=== PATIENT | female | born 1950 | race Caucasian/White ===

== ENCOUNTER 2019-10-16 12:02 | Outpatient (CLI) | payer MEDICARE, OTHER ==
[2019-10-16 17:52] LABS: BASOPHILS # (AUTO) 0.1 10^3/uL (0.0-0.1); BASOPHILS % (AUTO) 1.1 %; EOSINOPHILS # (AUTO) 0.3 10^3/uL (0.0-0.7); EOSINOPHILS % (AUTO) 3.7 %; HGB - HEMOGLOBIN 15.5 g/dL (12.0-16.0); LYMPHOCYTES # (AUTO) 2.1 10^3/uL (1.5-3.5); LYMPHOCYTES % (AUTO) 23.6 %; MEAN CORPUSCULAR HEMOGLOBIN 29.3 pg (27.0-31.0); MEAN CORPUSCULAR HGB CONC 32.6 g/dL (32.0-36.0); MEAN PLATELET VOLUME 10.7 fL (7.9-10.8); MONOCYTES # (AUTO) 0.7 10^3/uL (0.0-1.0); MONOCYTES % (AUTO) 8.1 %; NEUTROPHILS # (AUTO) 5.6 10^3/uL (1.5-6.6); NEUTROPHILS % (AUTO) 63.2 %; PLT - PLATELET COUNT 388 10^3/uL (130-450); RED BLOOD COUNT 5.29 10^6/uL (4.20-5.40); RED CELL DISTRIBUTION WIDTH 13.5 % (12.0-15.0); WHITE BLOOD COUNT 8.9 x10^3/uL (4.8-10.8)
[2019-10-16 18:11] LABS: ALBUMIN 4.4 g/dL (3.2-5.5); ALBUMIN/GLOBULIN RATIO 1.3 (1.0-2.2); ALKALINE PHOSPHATASE 140 IU/L (42-121); ALT ALANINE AMINOTRANSFERASE 41 IU/L (10-60); AMYLASE 32 U/L (28-100); AST ASPARTATE AMINOTRANSFERASE 21 IU/L (10-42); BILIRUBIN,TOTAL 0.7 mg/dL (0.2-1.0); BUN - BLOOD UREA NITROGEN 12 mg/dL (6-20); CALCIUM 9.4 mg/dL (8.5-10.3); CARBON DIOXIDE - CO2 29 mmol/L (21-32); CHLORIDE 99 mmol/L (101-111); CHOL/HDL RATIO 5.6 (<4.4); CHOLESTEROL 230 mg/dL; CREATININE 0.8 mg/dL (0.4-1.0); GLUCOSE 129 mg/dL (70-100); HDL CHOLESTEROL 41 mg/dL; LDL CHOLESTEROL,CALCULATED 167 mg/dL; LDL/HDL RATIO 4.1 (<4.4); LIPASE 26 U/L (22-51); SODIUM 138 mmol/L (135-145); TOTAL PROTEIN 7.7 g/dL (6.7-8.2); VLDL CHOLESTEROL 22 mg/dL
[2019-10-16 18:13] LABS: HB2 TOTAL 16.6 g/dL; HEMOGLOBIN A1C 0.95 g/dL; HEMOGLOBIN A1C % 7.4 % (4.6-6.2)
[2019-10-16 18:57] LABS: FREE T4 (FREE THYROXINE) 1.46 ng/dL (0.58-1.64)
== END 2019-10-16 23:59 | disposition home or self-care (01) ==
LOC: LAB.WCP 12:02
PROVIDERS: ATTEND Family Medicine
DX: E03.9 Hypothyroidism, unspecified (principal); I10 Essential (primary) hypertension; Z13.1 Encounter for screening for diabetes mellitus; R10.9 Unspecified abdominal pain
CPT/HCPCS: 36415; 80053; 80061; 82150; 83036; 83690; 83721; 84439; 84443; 85025

== ENCOUNTER 2023-03-28 09:41 | Emergency (ER) | payer MEDICARE, OTHER ==
[2023-03-28] MEDS ORDERED: LIDOCAINE PATCH 5% TOP STA (10:04)
--- NOTE | 2023-03-28 10:58 | ED Physician Documentation ---
PD HPI BACK PAIN - Stated complaint Stated Complaint: BACK PX - Chief complaint Chief Complaint: Back Pain - History obtained from History obtained from: Patient - Additional information Additional information: Patient is a 72-year-old female presenting for evaluation of left lower back pain that is been present for the past 2 and half weeks. Patient states a family member fell on the ground and was seated on the ground and that she tried to lift up this person from behind when she felt a pop in her back. She states the pain is in the left lower back without radiation elsewhere. No loss of bow el or bladder control. No fevers. No radiation into her legs. Denies numbness or weakness of the legs. Does not take a blood thinner. She has tried ibuprofen for her symptoms. She also reports having a 6-day course of prednisone that she bought while in [place]. She states that the first day was for 6 tablets that she believes was 5 mg and it tapered down each day from there. She states she tried this about a week ago without any improvement.She feels the pain more when she is doing twisting movements or trying to pick something up but states she feels better with just sitting or being still. Review of Systems Constitutional: denies: Fever Cardiac: denies: Chest pain / pressure Respiratory: denies: Dyspnea GI: denies: Abdominal Pain Musculoskeletal: reports: Back pain Neurologic: denies: Headache PD PAST MEDICAL HISTORY - Present Medications Home Medications: Ambulatory Orders Medication Instructions Recorded Confirmed Cyclobenzaprine [Flexeril] 10 mg PO TID PRN #20 tablet 03/28/23 Lidocaine Patch 5% [Lidoderm Patch] 1 patch TOP DAILY PRN #10 patch 03/28/23 - Allergies Allergies/Adverse Reactions: Allergies Allergy/AdvReac Type Severity Reaction Status Date / Time No Known Drug Allergies Allergy Verified 03/28/23 09:51 PD ED PE NORMAL - General General: Alert and oriented X 3, No acute distress, Well developed/nourished - HEENT HEENT: Atraumatic - Neck Neck: Supple, no meningeal sign - Cardiac Cardiac: RRR, No murmur, Strong equal pulses - Respiratory Respiratory: No respiratory distress, Clear bilaterally - Abdomen Abdomen: Normal bowel sounds, Soft, Non tender, Non distended - Back Back: Other (Mild low lumbar tenderness to palpation, Left paralumbar tenderness, no pelvic pain) - Extremities Extremities: No deformity, No tenderness to palpate, Normal ROM s pain - Neuro Neuro: Alert and oriented X 3, No motor deficit, No sensory deficit, Normal speech Results - Vitals Vitals: Vital Signs - 24 hr 03/28/23 03/28/23 09:46 11:29 Temperature 36.8 C Heart Rate 85 80 Respiratory 18 16 Rate Blood Pressure 146/86 H 129/68 O2 Saturation 94 95 Oxygen O2 Source Room air PD Medical Decision Making - ED course Complexity details: reviewed results, re-evaluated patient, d/w patient ED course: Patient is a 72-year-old female presenting for evaluation of low back pain that has been present for the past 2-1/2 weeks after trying to help a family member up off the ground. There is no radiation to her pain. She has no bowel or bladder incontinence, saddle anesthesia, known risk factors for cauda equina and no symptoms to suggest cord compression. Patient does have mild midline tenderness so CT scan was obtained which demonstrates L1 and L2 compression fractures. Patient declined narcotic pain medications. She is agreeable to trial of lidocaine patches and Flexeril. She is counseled on need for follow-up with her primary care provider. She has no abdominal tenderness. Nothing to suggest kidney stone. No fever. Patient advised on concerning symptoms to return for. Departure - Departure Disposition: 01 Home, Self Care Clinical Impression: Low back pain, Compression fracture of L1 lumbar vertebra, Compression fracture of L2 Condition: Stable Instructions: ED Sprain Strain Lumbar, ED Fx Comp Vertebral Prescriptions: Cyclobenzaprine [Flexeril] 10 mg PO TID PRN #20 tablet PRN Reason: Spasms Lidocaine Patch 5% [Lidoderm Patch] 1 patch TOP DAILY PRN #10 patch PRN Reason: pain Comments: You are found to have 2 compression fractures in your lower back. You also appear to have strain in the muscles in your lower back. You have declined narcotic pain medication but I would recommend continuing with an anti- inflammatory such as ibuprofen or acetaminophen. I have sent prescriptions for lidocaine patch as well as a muscle relaxer to [facility] in [place]. I would recommend close follow-up with your primary care provider. Please return to the ER with any worsening symptoms such as trouble controlling bowel or bladder function, weakness in your legs or any new concerns. CT LUMBAR SPINE 1. Acute to subacute appearing superior endplate compression deformities at L1 and L2 levels as above. Slight retropulsion of upper portion of L1 and L2 posterior muñoz causing mild central canal stenosis at these levels. 2. Degenerative disc disease and bilateral facet arthrosis throughout lumbar spine causing [id number] central canal stenosis and bilateral neural foraminal narrowing more notably at L3- 4 and L4-5 levels as above. Discharge Date/Time: 03/28/23 11:29
--- NOTE | 2023-03-28 11:08 | CT Report ---
PROCEDURE: LUMBAR SPINE WO INDICATIONS: low back pain x 2 weeks TECHNIQUE: Noncontrast 3 mm thick sections acquired from the T12 level to the sacrum. Sagittal and coronal refo rmats were constructed. For radiation dose reduction, the following was used: automated exposure co ntrol, adjustment of mA and/or kV according to patient size. COMPARISON: None. FINDINGS: Image quality: Excellent. Bones: There is straightening of normal lumbar lordosis. Acute to subacute appearing superior endpla te compression deformities are noted at L1 and L2 levels with up to 40% loss of L1 vertebral body hei ght anteriorly and up to 50% loss of L2 vertebral body height. Slight retropulsion involving upper po rtion of L1 and L2 posterior wall causing mild central canal stenosis at these levels are noted. No o ther fracture or dislocation is seen. No pars defects. T12-L1: Mild dorsal disc osteophyte complex formation causing mild central canal stenosis at this le cade. No significant neural foraminal narrowing. L1-L2: Mild dorsal disc osteophyte complex formation and bilateral facet arthrosis is seen. No sig nificant central canal stenosis. Mild to moderate left-sided neural foraminal narrowing is seen. L2-L3: Left lateral disc bulge and bilateral facet arthrosis is seen. No significant central canal stenosis. Mild left-sided neural foraminal narrowing is noted. L3-L4: Broad-based disc bulge and bilateral facet arthrosis causing moderate central canal stenosis and left worse than right bilateral neural foraminal narrowing. L4-L5: Broad-based disc bulge and bilateral facet arthrosis causing moderate central canal stenosis and moderate bilateral neural foraminal narrowing. L5-S1: Normal in appearance. Soft tissues: No retroperitoneal masses or hematomas. Visualized aorta is normal in caliber. IMPRESSION: 1. Acute to subacute appearing superior endplate compression deformities at L1 and L2 levels as above . Slight retropulsion of upper portion of L1 and L2 posterior muñoz causing mild central canal stenos is at these levels. 2. Degenerative disc disease and bilateral facet arthrosis throughout lumbar spine causing mild-to-mo derate central canal stenosis and bilateral neural foraminal narrowing more notably at L3-4 and L4-5 levels as above. Reviewed by: David Nickerson MD on 03/28/2023 11:06 AM PDT Approved by: David Nickerson MD on 03/28/2023 11:06 AM PDT Station ID: [id number]
[2023-03-28 11:36] VITALS: BP 129/68; O2SAT 95
== END 2023-03-28 11:29 | disposition home or self-care (01) ==
LOC: ED 09:41
DX: M48.56XA Collapsed vertebra, not elsewhere classified, lumbar region, initial encounter for fracture (principal)
CPT/HCPCS: 72131; 99283; 99284; A9270